=== PATIENT | male | born 1940 | race Caucasian/White ===

== ENCOUNTER 2018-08-09 14:19 | Day surgery (SDC) | payer MEDICARE, OTHER ==
[2018-08-09] MEDS ORDERED: DIPHENHYDRAMINE HCL 50 MG/ML VIAL ONE (15:59)
[2018-08-09] MEDS ORDERED: NALOXONE HCL INJ/PF 0.4 MG/1 ML SDV ONE (15:59)
[2018-08-09] MEDS ORDERED: MIDAZOLAM 2 MG/2 ML INJ ONE (15:59)
[2018-08-09] MEDS ORDERED: FLUMAZENIL INJ 0.5 MG/5 ML VIAL ONE (15:59)
[2018-08-09] MEDS ORDERED: FENTANYL CITRATE INJ/PF 100 MCG/2 ML AMPUL ONE (15:59)
[2018-08-09] MEDS ORDERED: ONDANSETRON HCL INJ/PF 4 MG/2 ML SDV ONE (15:59)
[2018-08-09] MEDS ORDERED: GLUCAGON,HUMAN RECOMB 1 MG INJ ONE (16:00)
[2018-08-09] MEDS ORDERED: EPINEPHRINE INJ 1 MG/10 ML DISP.SYRIN ONE (16:00)
--- NOTE | 2018-08-09 17:08 | Operative Report ---
Operative Report DATE OF SURGERY: 08/09/18 Operative Report: Pre-op diagnosis: History of GI bleed and sigmoid angiodysplasia Post-op diagnosis: 1. Sigmoid colon angiodysplasia 2. Internal hemorrhoids Surgery: Colonoscopy with argon plasma coagulation Medications: Versed 2mg, fentanyl 50 Mcg IV push Tissue removed: None Procedure: After informed consent obtained from patient, conscious sedation was achieved. A digital rectal examination was performed and this was unremarkable. The colonoscope was inserted into the rectum and advanced to the cecum. The appendiceal orifice and the terminal ileum were both identified. The mucosa was examined into details as the colonoscope was slowly pulled out of the patient. The endoscope was retroflexed in the rectum. Patient tolerated the procedure well. Findings Cecum: Normal Ascending colon: Normal Transverse colon: Normal Descending colon: Normal Sigmoid colon: 8 mm angiodysplasia noted in the proximal sigmoid colon and the previously thought to diarrhea. This was cauterized using argon plasma coagulation. There was no bleeding at the end of the procedure. Rectum: Normal except for internal hemorrhoids Plan: Will resume aspirin tomorrow and Eliquis in 2 days. He will use Eliquis daily for 3 days before going back to twice daily OPERATION: .
[2018-08-09 18:27] VITALS: BP 140/70
== END 2018-08-09 18:07 | disposition home or self-care (01) ==
LOC: END 14:19
PROVIDERS: ATTEND Internal Medicine Gastroenterology
DX: K55.20 Angiodysplasia of colon without hemorrhage (principal); K64.8 Other hemorrhoids; D50.0 Iron deficiency anemia secondary to blood loss (chronic); K21.9 Gastro-esophageal reflux disease without esophagitis; I10 Essential (primary) hypertension; E11.9 Type 2 diabetes mellitus without complications; J44.9 Chronic obstructive pulmonary disease, unspecified; I25.10 Atherosclerotic heart disease of native coronary artery without angina pectoris; I48.91 Unspecified atrial fibrillation; G47.30 Sleep apnea, unspecified; E66.9 Obesity, unspecified; Z79.899 Other long term (current) drug therapy; Z79.51 Long term (current) use of inhaled steroids; Z79.84 Long term (current) use of oral hypoglycemic drugs; Z79.01 Long term (current) use of anticoagulants; Z68.32 Body mass index [BMI] 32.0-32.9, adult
CPT/HCPCS: 45382; 82962; J2250; J3010; J0171; J1200; J1610; J2310; J2405; J3490

== ENCOUNTER → 2019-09-26 | Outpatient (CLI) | payer MEDICARE, OTHER ==
--- NOTE | 2019-09-27 11:43 | XCELERA REPORT ---
[address] [address] Lower Extremity Arterial Evaluation Name: CRISS MO Age: 79 yrs Gender: Male : 1940 Patient Status: Outpatient Patient Location: Study Date: 09/26/2019 01:14 PM Procedure: A color flow and duplex scan of the lower extremity arteries was performed bilaterally with velocity and waveform anaylsis. Ankle brachial indicies performed. Reason For Study: RT CALF ULCER Ordering Physician: ADRIANA WARD Performed By: Lashae Marquis Measurements and Calculations Right Left UPSETTER HELPER PSV 110.6 88.2 cm/sec Prox PFA PSV -64.6 -55.5 cm/sec Prox SFA PSV 108.2 98.7 cm/sec Mid SFA PSV -137.1 -98.2 cm/sec Dist SFA PSV -164.1 -110.0cm/sec Prox Pop A PSV 149.3 cm/sec Dist Pop A PSV 101.5 cm/sec Dist LEIDY PSV -48.3 62.9 cm/sec Dist PROFESSOR OF SOCIOLOGY PSV -74.6 -103.7cm/sec Michael Pedis PSV 12.0 -74.6 cm/sec Right Side Arterial Evaluation . Normal velocity and triphasic waveforms noted in the Common Femoral artery. Biphasic with normal velocity from Femoral to the infrageniculate vessels . Very low velocity, monophasic signal in the Dorsalis Pedis. Ankle Brachial index not obtained due to non compressibility. Left Side Arterial Evaluation . Normal velocity and triphasic waveforms noted from the Common Femoral artery to the Posterior Tibial. Biphasic with normal velocity in the Anterior Tibial Ankle Brachial index not obtained due to non compressibility. Interpretation Summary Moderate hemodynamically significant lesions in the right lower extremity only, on duplex imaging, at rest. Mild hemodynamically significant lesions in the left lower extremity only, on duplex imaging, at rest. Duplex shows no focal stenosis. Significant disease is suggested, at the Femoral on the right, with sequential disease in the Dorsalis Pedis. Vascularity on the left is fairly well preserved in the Posterior Tibial, with some compromise in the Anterior Tibial. GIO's are non compressible, indicating arterial wall stiffness, likely due atherosclerosis and or calcification. : ADRIANA WARD > Miquel Urbina
== END ==
LOC: SP 12:35
PROVIDERS: ATTEND Nurse Practitioner Family
DX: L97.212 Non-pressure chronic ulcer of right calf with fat layer exposed (principal)
CPT/HCPCS: 93922; 93925